=== PATIENT | female | born 1935 | race Caucasian/White ===

== ENCOUNTER 2017-12-13 14:41 | Emergency (ER) | payer OTHER ==
[2017-12-13] MEDS: ALBUTEROL 0.5% (NEB) 2.5 MG/0.5 ML AMP INH (17:20)
[2017-12-13] MEDS: SOD CHLORIDE 0.9% 500 ML IV (17:24)
[2017-12-13 17:25] LABS: ADD MAN DIFF? NO
[2017-12-13 17:27] LABS: BASOPHILS % 0.4 % (0.0-2.0); EOSINOPHILS % 0.1 % (0.0-7.0); HEMATOCRIT 26.5 % (37.0-47.0); HEMOGLOBIN 8.9 g/dl (12.0-16.0); LYMPHOCYTES # 1.1 10^3/ul (0.8-2.9); LYMPHOCYTES % 14.3 % (15.0-51.0); MEAN CORPUSCULAR HEMOGLOBIN 26.5 pg (29.0-33.0); MEAN CORPUSCULAR HGB CONC 33.6 g/dl (32.0-37.0); MEAN CORPUSCULAR VOLUME 78.9 fl (82.0-101.0); MEAN PLATELET VOLUME 7.4 fl (7.4-10.4); MONOCYTE # 0.6 10^3/ul (0.3-0.9); MONOCYTES % 8.5 % (0.0-11.0); NEUTROPHIL # 5.7 10^3/ul (1.6-7.5); PLATELET COUNT 361 10^3/UL (140-415); RED BLOOD COUNT 3.36 10^6/ul (4.20-5.40); RED CELL DISTRIBUTION WIDTH 18.8 % (11.5-14.5)
[2017-12-13 17:27] LABS: WHITE BLOOD COUNT 7.5 10^3/ul (4.8-10.8)
[2017-12-13 17:47] LABS: ALANINE AMINOTRANSFERASE 14 IU/L (13-69); ALBUMIN 3.4 g/dl (3.3-4.9); ALBUMIN/GLOBULIN RATIO 0.94; ALKALINE PHOSPHATASE 85 IU/L (42-121); ANION GAP 15 (8-16); ASPARTATE AMINO TRANSFERASE 26 IU/L (15-46); BILIRUBIN,INDIRECT 0.3 mg/dl (0-1.1); BILIRUBIN,TOTAL 0.3 mg/dl (0.2-1.3); BLOOD UREA NITROGEN 6 mg/dl (7-20); CALCIUM 8.3 mg/dl (8.4-10.2); CARBON DIOXIDE 25 mmol/L (21-31); CHLORIDE 88 mmol/L (97-110); CREATININE 0.34 mg/dl (0.44-1.00); GLUCOSE 95 mg/dl (70-220); LIPASE 84 U/L (23-300); POTASSIUM 4.3 mmol/L (3.5-5.1); SODIUM 124 mmol/L (135-144)
[2017-12-13 17:51] LABS: ADD UMIC NO; UR ASCORBIC ACID NEGATIVE (NEGATIVE); UR BILIRUBIN (Dip) NEGATIVE (NEGATIVE); UR BLOOD (Dip) NEGATIVE (NEGATIVE); UR CLARITY CLEAR (CLEAR); UR COLOR YELLOW (YELLOW); UR GLUCOSE (Dip) NEGATIVE (NEGATIVE); UR KETONES (Dip) TRACE mg/dL (NEGATIVE); UR LEUKOCYTE ESTERASE (Dip) NEGATIVE Leu/ul (NEGATIVE); UR NITRITE (Dip) NEGATIVE (NEGATIVE); UR SPECIFIC GRAVITY (Dip) 1.006 (1.003-1.030); UR TOTAL PROTEIN (Dip) NEGATIVE (NEGATIVE); UR UROBILINOGEN (Dip) 1+ mg/dL (NEGATIVE)
[2017-12-13 17:59] LABS: TROPONIN-I < 0.010 ng/ml (0.000-0.120)
== END 2017-12-13 20:29 | disposition home or self-care (01) ==
LOC: E/R 20:29
DX: D64.9 Anemia, unspecified (principal); R07.9 Chest pain, unspecified; R40.2142 Coma scale, eyes open, spontaneous, at arrival to emergency department; R40.2252 Coma scale, best verbal response, oriented, at arrival to emergency department; R40.2362 Coma scale, best motor response, obeys commands, at arrival to emergency department; E03.9 Hypothyroidism, unspecified; Z79.01 Long term (current) use of anticoagulants; Z86.73 Personal history of transient ischemic attack (TIA), and cerebral infarction without residual deficits
CPT/HCPCS: 36415; 71045; 74176; 80053; 81003; 83690; 84484; 85025; 93005; 94644; 99285-25

== ENCOUNTER 2018-01-19 17:20 | Inpatient (IN) | payer OTHER ==
[2018-01-19 18:00] LABS: ADD MAN DIFF? NO
[2018-01-19 18:02] LABS: WHITE BLOOD COUNT 16.8 10^3/ul (4.8-10.8)
[2018-01-19 18:02] LABS: BASOPHILS % 0.2 % (0.0-2.0); EOSINOPHILS % 0.1 % (0.0-7.0); HEMATOCRIT 32.1 % (37.0-47.0); LYMPHOCYTES # 2.2 10^3/ul (0.8-2.9); LYMPHOCYTES % 13.1 % (15.0-51.0); MEAN CORPUSCULAR HEMOGLOBIN 26.8 pg (29.0-33.0); MEAN CORPUSCULAR HGB CONC 34.3 g/dl (32.0-37.0); MEAN CORPUSCULAR VOLUME 78.1 fl (82.0-101.0); MEAN PLATELET VOLUME 7.7 fl (7.4-10.4); NEUTROPHIL # 13.3 10^3/ul (1.6-7.5); NEUTROPHILS % 79.6 % (39.0-77.0); PLATELET COUNT 303 10^3/UL (140-415); RED BLOOD COUNT 4.11 10^6/ul (4.20-5.40); RED CELL DISTRIBUTION WIDTH 15.9 % (11.5-14.5)
[2018-01-19 18:22] LABS: ALANINE AMINOTRANSFERASE 22 IU/L (13-69); ALBUMIN 3.7 g/dl (3.3-4.9); ALBUMIN/GLOBULIN RATIO 1.02; ALKALINE PHOSPHATASE 94 IU/L (42-121); ANION GAP 15 (8-16); ASPARTATE AMINO TRANSFERASE 28 IU/L (15-46); BILIRUBIN,INDIRECT 0.5 mg/dl (0-1.1); BILIRUBIN,TOTAL 0.5 mg/dl (0.2-1.3); BLOOD UREA NITROGEN 6 mg/dl (7-20); CALCIUM 8.3 mg/dl (8.4-10.2); CARBON DIOXIDE 19 mmol/L (21-31); CHLORIDE 88 mmol/L (97-110); CREATININE 0.21 mg/dl (0.44-1.00); GLUCOSE 167 mg/dl (70-220); LIPASE 77 U/L (23-300); POTASSIUM 3.4 mmol/L (3.5-5.1); TOTAL PROTEIN 7.3 g/dl (6.1-8.1)
[2018-01-19 18:23] LABS: INR 0.93; PARTIAL THROMBOPLASTIN TIME 28.8 Sec (23.0-35.0); PROTIME 12.5 Sec (11.9-14.9)
[2018-01-19 18:27] LABS: SODIUM 119 mmol/L (135-144)
[2018-01-19] MEDS: SOD CHLORIDE 0.9% 1,000 ML IV (18:28)
[2018-01-19 18:34] LABS: TROPONIN-I < 0.012 ng/ml (0.000-0.120)
[2018-01-19 19:06] LABS: ADD UMIC YES; UR ASCORBIC ACID NEGATIVE (NEGATIVE); UR BACTERIA MANY /HPF (NONE SEEN); UR BILIRUBIN (Dip) NEGATIVE (NEGATIVE); UR BLOOD (Dip) NEGATIVE (NEGATIVE); UR CLARITY CLOUDY (CLEAR); UR COLOR YELLOW (YELLOW); UR GLUCOSE (Dip) 1+ mg/dL (NEGATIVE); UR KETONES (Dip) 1+ mg/dL (NEGATIVE); UR LEUKOCYTE ESTERASE (Dip) 2+ Leu/ul (NEGATIVE); UR MUCUS MODERATE /HPF (NONE SEEN); UR NITRITE (Dip) POSITIVE (NEGATIVE); UR RBC 3 /HPF (0-5); UR SPECIFIC GRAVITY (Dip) 1.012 (1.003-1.030); UR TOTAL PROTEIN (Dip) NEGATIVE (NEGATIVE); UR UROBILINOGEN (Dip) NEGATIVE (NEGATIVE); UR WBC 79 /HPF (0-5)
[2018-01-19] MEDS: CEFTRIAXONE 1 GM/50 ML (PMX) 50 ML IVPB (19:53)
[2018-01-20] MEDS: morphine 2 MG INJ IV (00:22)
[2018-01-20] MEDS: SOD CHLORIDE 0.9% 1,000 ML IV ×3 (00:23→21:00)
[2018-01-20] MEDS: ONDANSETRON 4 MG INJ IV (00:23)
[2018-01-20 00:33] LABS: OSMOLALITY 244 mOsm/kg (280-295)
[2018-01-20 01:08] LABS: OSMOLALITY,URINE 420 mOsm/kg (250-1200)
[2018-01-20] MEDS ORDERED: ALBUTEROL HFA 8 GM INHALER INH (06:00)
[2018-01-20 06:56] LABS: ADD MAN DIFF? NO
[2018-01-20 06:59] LABS: WHITE BLOOD COUNT 13.2 10^3/ul (4.8-10.8)
[2018-01-20 06:59] LABS: BASOPHILS % 0.1 % (0.0-2.0); HEMATOCRIT 29.2 % (37.0-47.0); HEMOGLOBIN 10.1 g/dl (12.0-16.0); LYMPHOCYTES # 0.8 10^3/ul (0.8-2.9); LYMPHOCYTES % 6.3 % (15.0-51.0); MEAN CORPUSCULAR HEMOGLOBIN 26.8 pg (29.0-33.0); MEAN CORPUSCULAR HGB CONC 34.6 g/dl (32.0-37.0); MEAN CORPUSCULAR VOLUME 77.5 fl (82.0-101.0); MONOCYTE # 0.5 10^3/ul (0.3-0.9); MONOCYTES % 3.6 % (0.0-11.0); NEUTROPHIL # 11.8 10^3/ul (1.6-7.5); NEUTROPHILS % 89.5 % (39.0-77.0); PLATELET COUNT 280 10^3/UL (140-415); RED BLOOD COUNT 3.77 10^6/ul (4.20-5.40); RED CELL DISTRIBUTION WIDTH 15.9 % (11.5-14.5)
[2018-01-20] MEDS: LEVOTHYROXINE 88 MCG TAB PO (07:00)
[2018-01-20 07:36] LABS: ALANINE AMINOTRANSFERASE 28 IU/L (13-69); ALBUMIN 2.8 g/dl (3.3-4.9); ALBUMIN/GLOBULIN RATIO 0.77; ALKALINE PHOSPHATASE 69 IU/L (42-121); ANION GAP 14 (8-16); ASPARTATE AMINO TRANSFERASE 21 IU/L (15-46); BILIRUBIN,INDIRECT 0.5 mg/dl (0-1.1); BILIRUBIN,TOTAL 0.5 mg/dl (0.2-1.3); BLOOD UREA NITROGEN 5 mg/dl (7-20); CALCIUM 7.7 mg/dl (8.4-10.2); CARBON DIOXIDE 21 mmol/L (21-31); CHLORIDE 90 mmol/L (97-110); CREATININE 0.24 mg/dl (0.44-1.00); GLUCOSE 114 mg/dl (70-220); PHOSPHORUS 2.6 mg/dl (2.5-4.9); POTASSIUM 3.1 mmol/L (3.5-5.1); SODIUM 122 mmol/L (135-144); TOTAL PROTEIN 6.4 g/dl (6.1-8.1); URIC ACID 1.2 mg/dl (3.1-7.9)
[2018-01-20 08:17] LABS: MAGNESIUM 1.7 mg/dl (1.7-2.5)
[2018-01-20] MEDS: FERROUS SULFATE (EC) 325 MG TAB PO ×3 (08:57→20:17)
[2018-01-20] MEDS: CLOPIDOGREL 75 MG TAB PO ×2 (08:58→12:12)
[2018-01-20] MEDS: PAROXETINE 10 MG TAB PO (08:58)
[2018-01-20] MEDS ORDERED: NON-FORMULARY/PATIENT OWN MED (Clopidogrel Bisulfate* 75 MG) PO (09:00)
[2018-01-20 10:49] LABS: ADD UMIC NO; UR ASCORBIC ACID NEGATIVE (NEGATIVE); UR BILIRUBIN (Dip) NEGATIVE (NEGATIVE); UR BLOOD (Dip) NEGATIVE (NEGATIVE); UR CLARITY SLIGHTLY CLOUDY (CLEAR); UR COLOR YELLOW (YELLOW); UR GLUCOSE (Dip) 1+ mg/dL (NEGATIVE); UR KETONES (Dip) 2+ mg/dL (NEGATIVE); UR LEUKOCYTE ESTERASE (Dip) NEGATIVE Leu/ul (NEGATIVE); UR MUCUS FEW /HPF (NONE SEEN); UR NITRITE (Dip) NEGATIVE (NEGATIVE); UR RBC 6 /HPF (0-5); UR SPECIFIC GRAVITY (Dip) 1.013 (1.003-1.030); UR TOTAL PROTEIN (Dip) NEGATIVE (NEGATIVE); UR UROBILINOGEN (Dip) NEGATIVE (NEGATIVE); UR WBC 15 /HPF (0-5)
[2018-01-20 11:11] LABS: SODIUM,URINE RANDOM 101 mmol/L (30-90)
[2018-01-20 11:11] LABS: CREATININE,URINE RANDOM 38.97 mg/dl (20-320)
[2018-01-20] MEDS: POTASSIUM CHLORIDE (SR) 20 MEQ TAB PO (12:10)
[2018-01-20 14:17] LABS: URIC ACID 1.1 mg/dl (3.1-7.9)
[2018-01-20 14:17] LABS: ANION GAP 11 (8-16); BLOOD UREA NITROGEN 3 mg/dl (7-20); CALCIUM 8.1 mg/dl (8.4-10.2); CARBON DIOXIDE 22 mmol/L (21-31); CHLORIDE 93 mmol/L (97-110); CREATININE 0.25 mg/dl (0.44-1.00); GLUCOSE 97 mg/dl (70-220); POTASSIUM 3.4 mmol/L (3.5-5.1); SODIUM 123 mmol/L (135-144)
[2018-01-20] MEDS: ATORVASTATIN 10 MG TAB PO (20:16)
[2018-01-20] MEDS: CEFTRIAXONE 1 GM/50 ML (PMX) 50 ML IVPB (21:00)
[2018-01-20] MEDS ORDERED: NON-FORMULARY/PATIENT OWN MED (Lovastatin* 20 MG) PO (21:00)
[2018-01-21] MEDS: SOD CHLORIDE 0.9% 1,000 ML IV ×2 (05:30→22:47)
[2018-01-21 06:13] LABS: ADD MAN DIFF? NO
[2018-01-21 06:31] LABS: WHITE BLOOD COUNT 6.5 10^3/ul (4.8-10.8)
[2018-01-21 06:31] LABS: BASOPHILS % 0.5 % (0.0-2.0); EOSINOPHILS % 0.2 % (0.0-7.0); HEMATOCRIT 31.2 % (37.0-47.0); HEMOGLOBIN 10.2 g/dl (12.0-16.0); LYMPHOCYTES # 1.4 10^3/ul (0.8-2.9); LYMPHOCYTES % 20.7 % (15.0-51.0); MEAN CORPUSCULAR HEMOGLOBIN 26.8 pg (29.0-33.0); MEAN CORPUSCULAR HGB CONC 32.7 g/dl (32.0-37.0); MEAN CORPUSCULAR VOLUME 81.9 fl (82.0-101.0); MEAN PLATELET VOLUME 8.1 fl (7.4-10.4); MONOCYTE # 0.7 10^3/ul (0.3-0.9); MONOCYTES % 10.7 % (0.0-11.0); NEUTROPHIL # 4.4 10^3/ul (1.6-7.5); NEUTROPHILS % 67.4 % (39.0-77.0); PLATELET COUNT 262 10^3/UL (140-415); RED BLOOD COUNT 3.81 10^6/ul (4.20-5.40); RED CELL DISTRIBUTION WIDTH 16.6 % (11.5-14.5)
[2018-01-21 06:46] LABS: ANION GAP 13 (8-16); BLOOD UREA NITROGEN 3 mg/dl (7-20); CALCIUM 8.4 mg/dl (8.4-10.2); CARBON DIOXIDE 21 mmol/L (21-31); CHLORIDE 99 mmol/L (97-110); CREATININE 0.21 mg/dl (0.44-1.00); GLUCOSE 72 mg/dl (70-220); PHOSPHORUS 2.2 mg/dl (2.5-4.9); POTASSIUM 3.3 mmol/L (3.5-5.1); SODIUM 130 mmol/L (135-144)
[2018-01-21] MEDS: LEVOTHYROXINE 88 MCG TAB PO (07:00)
[2018-01-21] MEDS ORDERED: POTASSIUM PHOSPHATE 40 MEQ in SOD CHLORIDE 0.9% 250 ML IVPB (08:30)
[2018-01-21] MEDS: PAROXETINE 10 MG TAB PO (09:00)
[2018-01-21] MEDS: FERROUS SULFATE (EC) 325 MG TAB PO ×3 (09:00→21:00)
[2018-01-21] MEDS: CLOPIDOGREL 75 MG TAB PO (09:00)
[2018-01-21] MEDS: POTASSIUM CHLORIDE 100 ML IVPB ×2 (10:26→12:32)
[2018-01-21] MEDS: SODIUM PHOSPHATE 30 MMOL in SOD CHLORIDE 0.9% 250 ML IV (14:07)
[2018-01-21 14:36] LABS: ANION GAP 15 (8-16); BLOOD UREA NITROGEN 4 mg/dl (7-20); CALCIUM 8.3 mg/dl (8.4-10.2); CARBON DIOXIDE 19 mmol/L (21-31); CHLORIDE 99 mmol/L (97-110); CREATININE 0.23 mg/dl (0.44-1.00); GLUCOSE 68 mg/dl (70-220); POTASSIUM 4.1 mmol/L (3.5-5.1); SODIUM 129 mmol/L (135-144)
[2018-01-21 17:11] LABS: CREATININE, RANDOM URINE 43 mg/dL (20-275); MICROALBUMIN 6.8 mg/dL; MICROALBUMIN/CREATININE RATIO 158 (<30)
[2018-01-21] MEDS: ATORVASTATIN 10 MG TAB PO (21:00)
[2018-01-21] MEDS: CEFTRIAXONE 1 GM/50 ML (PMX) 50 ML IVPB (21:06)
[2018-01-22 06:38] LABS: ADD MAN DIFF? NO
[2018-01-22 06:40] LABS: BASOPHILS % 0.7 % (0.0-2.0); EOSINOPHILS # 0.1 10^3/ul (0.0-0.5); EOSINOPHILS % 0.9 % (0.0-7.0); HEMATOCRIT 31.4 % (37.0-47.0); HEMOGLOBIN 10.5 g/dl (12.0-16.0); LYMPHOCYTES # 1.5 10^3/ul (0.8-2.9); LYMPHOCYTES % 27.7 % (15.0-51.0); MEAN CORPUSCULAR HEMOGLOBIN 27.1 pg (29.0-33.0); MEAN CORPUSCULAR HGB CONC 33.4 g/dl (32.0-37.0); MEAN CORPUSCULAR VOLUME 80.9 fl (82.0-101.0); MEAN PLATELET VOLUME 7.8 fl (7.4-10.4); MONOCYTE # 0.5 10^3/ul (0.3-0.9); MONOCYTES % 9.9 % (0.0-11.0); NEUTROPHIL # 3.2 10^3/ul (1.6-7.5); NEUTROPHILS % 60.2 % (39.0-77.0); PLATELET COUNT 271 10^3/UL (140-415); RED BLOOD COUNT 3.88 10^6/ul (4.20-5.40); RED CELL DISTRIBUTION WIDTH 16.7 % (11.5-14.5)
[2018-01-22 06:40] LABS: WHITE BLOOD COUNT 5.3 10^3/ul (4.8-10.8)
[2018-01-22] MEDS: LEVOTHYROXINE 88 MCG TAB PO (06:51)
[2018-01-22 07:39] LABS: ANION GAP 12 (8-16); BLOOD UREA NITROGEN 3 mg/dl (7-20); CARBON DIOXIDE 23 mmol/L (21-31); CHLORIDE 98 mmol/L (97-110); CREATININE 0.21 mg/dl (0.44-1.00); GLUCOSE 72 mg/dl (70-220); PHOSPHORUS 2.5 mg/dl (2.5-4.9); SODIUM 130 mmol/L (135-144)
[2018-01-22 07:44] LABS: POTASSIUM 2.9 mmol/L (3.5-5.1)
[2018-01-22] MEDS: NS + KCL 20 MEQ 1,000 ML IV (08:46)
[2018-01-22] MEDS: CLOPIDOGREL 75 MG TAB PO (08:47)
[2018-01-22] MEDS: FERROUS SULFATE (EC) 325 MG TAB PO ×3 (08:47→21:05)
[2018-01-22] MEDS: PAROXETINE 10 MG TAB PO (08:47)
[2018-01-22] MEDS: POTASSIUM CHLORIDE 100 ML IVPB ×2 (09:00→11:13)
[2018-01-22] MEDS: BALSAM PERU/CASTOR OIL 60 GM TUBE TOP ×2 (12:08→21:08)
[2018-01-22 14:22] LABS: ANION GAP 14 (8-16); BLOOD UREA NITROGEN 2 mg/dl (7-20); CARBON DIOXIDE 20 mmol/L (21-31); CHLORIDE 99 mmol/L (97-110); GLUCOSE 71 mg/dl (70-220); POTASSIUM 4.7 mmol/L (3.5-5.1); SODIUM 128 mmol/L (135-144)
[2018-01-22] MEDS: ATORVASTATIN 10 MG TAB PO (21:05)
[2018-01-22] MEDS: CEFTRIAXONE 1 GM/50 ML (PMX) 50 ML IVPB (21:32)
[2018-01-23] MEDS: NS + KCL 20 MEQ 1,000 ML IV (04:43)
[2018-01-23] MEDS: LEVOTHYROXINE 88 MCG TAB PO (06:26)
[2018-01-23 06:40] LABS: ADD MAN DIFF? NO
[2018-01-23 06:43] LABS: WHITE BLOOD COUNT 5.1 10^3/ul (4.8-10.8)
[2018-01-23 06:43] LABS: BASOPHILS % 0.6 % (0.0-2.0); EOSINOPHILS # 0.1 10^3/ul (0.0-0.5); EOSINOPHILS % 1.4 % (0.0-7.0); HEMATOCRIT 33.6 % (37.0-47.0); LYMPHOCYTES # 1.4 10^3/ul (0.8-2.9); LYMPHOCYTES % 27.7 % (15.0-51.0); MEAN CORPUSCULAR HEMOGLOBIN 26.8 pg (29.0-33.0); MEAN CORPUSCULAR HGB CONC 32.7 g/dl (32.0-37.0); MEAN CORPUSCULAR VOLUME 81.8 fl (82.0-101.0); MEAN PLATELET VOLUME 7.6 fl (7.4-10.4); MONOCYTE # 0.5 10^3/ul (0.3-0.9); MONOCYTES % 8.8 % (0.0-11.0); NEUTROPHIL # 3.1 10^3/ul (1.6-7.5); NEUTROPHILS % 60.9 % (39.0-77.0); PLATELET COUNT 283 10^3/UL (140-415); RED BLOOD COUNT 4.11 10^6/ul (4.20-5.40); RED CELL DISTRIBUTION WIDTH 16.7 % (11.5-14.5)
[2018-01-23 07:31] LABS: ANION GAP 15 (8-16); BLOOD UREA NITROGEN 4 mg/dl (7-20); CALCIUM 8.2 mg/dl (8.4-10.2); CARBON DIOXIDE 19 mmol/L (21-31); CHLORIDE 99 mmol/L (97-110); CREATININE 0.24 mg/dl (0.44-1.00); GLUCOSE 55 mg/dl (70-220); MAGNESIUM 1.9 mg/dl (1.7-2.5); PHOSPHORUS 2.5 mg/dl (2.5-4.9); POTASSIUM 3.7 mmol/L (3.5-5.1); SODIUM 129 mmol/L (135-144)
[2018-01-23] MEDS: PAROXETINE 10 MG TAB PO (07:42)
[2018-01-23] MEDS: BALSAM PERU/CASTOR OIL 60 GM TUBE TOP (07:42)
[2018-01-23] MEDS: CLOPIDOGREL 75 MG TAB PO (07:42)
[2018-01-23] MEDS: FERROUS SULFATE (EC) 325 MG TAB PO ×2 (07:42→12:59)
== END 2018-01-23 19:33 | disposition home health service (06) | DRG 871 ==
LOC: E/R 17:20 → TEL 21:53
DX: A41.9 Sepsis, unspecified organism (principal); E43 Unspecified severe protein-calorie malnutrition; G93.41 Metabolic encephalopathy; N39.0 Urinary tract infection, site not specified; E87.1 Hypo-osmolality and hyponatremia; Z68.1 Body mass index [BMI] 19.9 or less, adult; I69.951 Hemiplegia and hemiparesis following unspecified cerebrovascular disease affecting right dominant side; R65.20 Severe sepsis without septic shock; R19.00 Intra-abdominal and pelvic swelling, mass and lump, unspecified site; E03.9 Hypothyroidism, unspecified; E87.6 Hypokalemia; E83.9 Disorder of mineral metabolism, unspecified; R13.10 Dysphagia, unspecified; D50.9 Iron deficiency anemia, unspecified
CPT/HCPCS: 36415; 70450; 71045; 74176; 80048; 80053; 81001; 81003; 82043; 82533; 83690; 83735; 83930; 83935; 84100; 84155; 84300; 84443; 84484; 84560; 85025; 85610; 85730; 86850; 86900; 86901; 87086; 92526; 92610; 93005; 96360; 97110; 97162; 97530; 99285-25